=== PATIENT | female | born 1965 | race American Indian/Alaskan Native ===

== ENCOUNTER 2016-11-29 10:17 | Outpatient (CLI) | payer OTHER ==
--- NOTE | 2016-11-29 11:54 | Mammography Report ---
BILATERAL MAMMOGRAM: Compared to 09/27/15. CAD study utilized. FINDINGS: Predominance of adipose tissue bilaterally. No mass or microcalcification. Normal axilla. IMPRESSION: Benign findings. Annual follow-up recommended. BI-RADS CATEGORY: 2 = Benign ACR BI-RADS MAMMOGRAPHIC CODES: 0 = Needs additional imaging evaluation; 1 = Negative; 2 = Benign; 3 = Probably benign; 4 = Suspicious; 5 = Malignant; 6 = Known biopsy-proven malignancy COMMENT: 1. Dense breast tissue, i.e., adenosis, fibrocystic changes, etc., may obscure an underlying neoplasm. 2. Approximately 10% of cancers are not detected with mammography. 3. A negative mammography report should not delay biopsy if a clinically suspicious mass is present. COMMENT: Patient follow-up letters are generated in [employer].
== END 2016-11-29 10:18 | disposition home or self-care (01) ==
LOC: MAMMO 10:17
PROVIDERS: ATTEND Internal Medicine
DX: Z12.31 Encounter for screening mammogram for malignant neoplasm of breast (principal)
CPT/HCPCS: 77067; G0202

== ENCOUNTER 2018-04-08 09:36 | Outpatient (CLI) | payer MEDICARE ==
--- NOTE | 2018-04-09 12:50 | Mammography Report ---
Bilateral mammogram: Compared to 11/29/16 and 09/27/15. CAD study utilized. Findings: Predominance of adipose tissue bilaterally. New circumscribed 3 mm density identified at the mid left breast seen on CC view. No microcalcification. Normal axilla. Impression: New focal asymmetry left breast. Recommend spot mag and if necessary sonographic examination. BI-RADS CATEGORY: 0 = Needs additional imaging evaluation ACR BI-RADS MAMMOGRAPHIC CODES: 0 = Needs additional imaging evaluation; 1 = Negative; 2 = Benign; 3 = Probably benign; 4 = Suspicious; 5 = Malignant; 6 = Known biopsy-proven malignancy COMMENT: 1. Dense breast tissue, i.e., adenosis, fibrocystic changes, etc., may obscure an underlying neoplasm. 2. Approximately 10% of cancers are not detected with mammography. 3. A negative mammography report should not delay biopsy if a clinically suspicious mass is present. COMMENT: Patient follow-up letters are generated in [employer].
== END 2018-04-08 09:37 | disposition home or self-care (01) ==
LOC: MAMMO 09:36
PROVIDERS: ATTEND Internal Medicine
DX: Z12.31 Encounter for screening mammogram for malignant neoplasm of breast (principal); N64.89 Other specified disorders of breast
CPT/HCPCS: 77067

== ENCOUNTER 2018-05-08 10:24 | Outpatient (CLI) | payer MEDICARE ==
--- NOTE | 2018-05-09 15:11 | Mammography Report ---
LEFT DIGITAL DIAGNOSTIC MAMMOGRAM and LEFT BREAST ULTRASOUND: 05/08/18 10:24:00 CLINICAL: Recalled for asymmetry. COMPARISON:04/08/18 screening FINDINGS: Spot compression CC views demonstrate partial effacement of the retroareolar asymmetry and no corresponding asymmetry is identified on the lateral view. Ultrasound of the retroareolar left breast was performed and demonstrated normal fatty structures with no mass, cyst or shadowing to correlate with the mammographic density. IMPRESSION: A probably benign mammographic asymmetry with a negative ultrasound. BI-RADS CATEGORY: 3 - - Probably Benign RECOMMENDATION: Six month followup left mammogram and ultrasound if needed. ACR BI-RADS MAMMOGRAPHIC CODES: 0 = Needs additional imaging evaluation; 1 = Negative; 2 = Benign; 3 = Probably benign; 4 = Suspicious; 5 = Malignant; 6 = Known biopsy-proven malignancy COMMENT: 1. Dense breast tissue, i.e., adenosis, fibrocystic changes, etc., may obscure an underlying neoplasm. 2. Approximately 10% of cancers are not detected with mammography. 3. A negative mammography report should not delay biopsy if a clinically suspicious mass is present. COMMENT: Patient follow-up letters are generated via our [employer] application.
== END 2018-05-08 10:25 | disposition home or self-care (01) ==
LOC: MAMMO 10:24
PROVIDERS: ATTEND Internal Medicine
DX: N64.89 Other specified disorders of breast (principal); R92.2 Inconclusive mammogram

== ENCOUNTER 2019-11-03 09:35 | Outpatient (CLI) | payer MEDICARE ==
--- NOTE | 2019-11-03 11:39 | Mammography Report ---
DIGITAL SCREENING MAMMOGRAM WITH CAD, 11/03/2019 INDICATION: Routine screening mammography. TECHNIQUE: Digital bilateral 2D mammography was obtained in the craniocaudal and mediolateral obliq ue projections. This examination was interpreted with the benefit of Computer-Aided Detection analysi s. COMPARISON: 04/08/2018 FINDINGS: Breast Density: The breasts are almost entirely fatty. There is no evidence of dominant mass, suspicious calcifications or architectural distortion in eithe r breast. IMPRESSION: No mammographic evidence of malignancy. Follow up recommendation: Routine yearly BI-RADS Category 1: Negative. A "normal" or negative report should not discourage follow up or biopsy of a clinically significant f inding. A written summary of these findings will be mailed to the patient. The patient will be entered into a mammography reporting system which will generate a reminder letter for the patient's next appointmen t at the appropriate interval. The [employer] recommends yearly mammograms starting at age 40 and continuing as l vishnu as a woman is in good health. Breast MRI is recommended for women with an approximate 20-25% or greater lifetime risk of breast cancer, including women with a strong family history of breast or ova candy cancer or who have been treated for Hodgkin's disease. Signer Name: Natalio Mckeon MD Signed: 11/03/2019 11:34 AM Workstation Name: [id number]
== END 2019-11-03 09:36 | disposition home or self-care (01) ==
LOC: MAMMO 09:35
PROVIDERS: ATTEND Internal Medicine
DX: Z12.31 Encounter for screening mammogram for malignant neoplasm of breast (principal)
CPT/HCPCS: 77067

== ENCOUNTER 2020-11-17 08:37 | Outpatient (CLI) | payer MEDICARE ==
--- NOTE | 2020-11-17 10:32 | Mammography Report ---
DIGITAL SCREENING MAMMOGRAM WITH CAD, 11/17/2020 CLINICAL INFORMATION / INDICATION: Routine screening mammography. TECHNIQUE: Digital bilateral 2D mammography was obtained in the craniocaudal and mediolateral obliqu e projections. This examination was interpreted with the benefit of Computer-Aided Detection analysis . COMPARISON: 11/03/2019, 04/08/2018 FINDINGS: Breast Density: The breasts are almost entirely fatty. No dominant mass, suspicious calcifications, or architectural distortion in either breast. There is a small stable benign nodule in the right breast. No interval change. IMPRESSION: No mammographic evidence of malignancy. Follow up recommendation: Routine yearly BI-RADS Category 2: Benign. A "normal" or negative report should not discourage follow up or biopsy of a clinically significant f inding. A written summary of these findings will be mailed to the patient. The patient will be entered into a mammography reporting system which will generate a reminder letter for the patient's next appointmen t at the appropriate interval. The [employer] recommends yearly mammograms starting at age 40 and continuing as l vishnu as a woman is in good health. Breast MRI is recommended for women with an approximate 20-25% or greater lifetime risk of breast cancer, including women with a strong family history of breast or ova candy cancer or who have been treated for Hodgkin's disease. Signer Name: Bekah Limon MD Signed: 11/17/2020 10:28 AM Workstation Name: [id number]
== END 2020-11-17 08:38 | disposition home or self-care (01) ==
LOC: MAMMO 08:37
PROVIDERS: ATTEND Nurse Practitioner Acute Care
DX: Z12.31 Encounter for screening mammogram for malignant neoplasm of breast (principal)
CPT/HCPCS: 77067